=== PATIENT | female | born 1985 | race Caucasian/White ===

== ENCOUNTER 2016-12-31 08:19 | Emergency (ER) | payer OTHER, MEDICAID ==
[~2016-12-31 08:19] MED LIST: CALNTAB PO; LACTCAP8 PO; SERT-132 PO
--- NOTE | 2016-12-31 09:10 | PD ---
HPI Chief Complaint cramping/pressure Date Seen: Dec 31, 2016 Time Seen: 08:50 Travel History International Travel<30 Days: No Contact w/Intl Traveler<30Days: No Known Affected Area: No History of Present Illness HPI 31-year-old 4 para 1111 at 26 weeks gestation who was on her way to work this morning and felt pelvic pressure and mild menstrual cramps sensation and was concerned. She admits she is quite anxious due to a prior history of a 22 week demise. She denies any vaginal discharge, bleeding, contractions or leakage of fluid. No dysuria hematuria or frequency. History Past Medical History Medical History: Denies Significant Hx Family History Family History: Negative Social History Alcohol Use: No Tobacco Use: No Substance Abuse: No Allergies-Medications (Allergen,Severity, Reaction): Coded Allergies: erythromycin base (Unverified Allergy, Severe, Rash, 12/18/16) Sulfa (Sulfonamide Antibiotics) (Unverified Allergy, Mild, 12/18/16) bacitracin (Unverified Allergy, Mild, 12/18/16) gramicidin D (Unverified Allergy, Mild, 12/18/16) neomycin (Unverified Allergy, Mild, 12/18/16) polymyxin B (Unverified Allergy, Mild, 12/18/16) vancomycin (Unverified Allergy, Mild, 12/18/16) Home Meds Reported Medications Lactobacillus Acidophilus (Probiotic) 1 Cap Cap, 1 CAP PO DAILY for Nutritional Supplement, #0 CAP 0 Refills 03/19/16 Vitamin (Calna) 1 Tab Tab, 1 TAB PO DAILY 03/19/16 Sertraline (Sertraline) 50 Mg Tab, 50 MG PO DAILY, #0 TAB 0 Refills 03/19/16 Review of Systems Except as stated in HPI: all other systems reviewed are Neg Physical Exam Narrative GENERAL: Well-nourished, well-developed patient. SKIN: Warm and dry. HEAD: Normocephalic and atraumatic. EYES: No scleral icterus. No injection or drainage. ENT: No nasal drainage noted. Mucous membranes pink. Airway patent. NECK: Supple, trachea midline. No JVD. CARDIOVASCULAR: Regular rate and rhythm without murmurs, gallops, or rubs. RESPIRATORY: Breath sounds equal bilaterally. No accessory muscle use. BREASTS: Bilateral exam showed no masses , no retractions, no nipple discharge. ABDOMEN/GI: Abdomen soft, non-tender, bowel sounds present, no rebound, no guarding Gravid to [-] weeks size Fundal Height: [27-] GENITOURINARY: External Genitalia: intact and normal in appearance BUS glands: [Negative-] Cervix: [-] Dilatation: [Closed-] Effacement: [-Long] Station: [-High] Presentation: [-] Membranes: [intact] Uterine Contractions: [-None] FHT's: Category: [-] Baseline: [-] Reactive: [-Yes] Variability: [-] Decels: [-] EXTREMITIES: No cyanosis or edema. BACK: Nontender without obvious deformity. No CVA tenderness. NEUROLOGICAL: Awake and alert. Motor and sensory grossly within normal limits. Five out of 5 muscle strength in all muscle groups. Normal speech. Data Data Vital Signs Reviewed: Yes MDM Medical Record Reviewed: Yes Narrative Course / MDM Assessment: Multipara at 26 weeks gestation with lower abdominal pressure without evidence of labor. Plan: Urine dipstick negative for LC and nitrite. Precautions were reviewed with the patient and she was encouraged follow-up with Dr. Mccord as scheduled on . Diagnosis Diagnosis: Primary Impression: related bilateral lower abdominal pain, antepartum Additional Impression: 26 weeks gestation of Disposition: DISCHARGE HOME Condition: Good Devon Regalado MD Dec 31, 2016 09:10
== END 2016-12-31 09:33 | disposition home or self-care (01) ==
LOC: HOBED 08:19
DX: O26.892 Other specified pregnancy related conditions, second trimester (principal); R10.32 Left lower quadrant pain; R10.31 Right lower quadrant pain; Z3A.26 26 weeks gestation of pregnancy
CPT/HCPCS: 59025

== ENCOUNTER 2017-01-09 13:23 | Emergency (ER) | payer OTHER, MEDICAID ==
[~2017-01-09] VITALS: Ht 170.2 cm; Wt 60.3 kg
--- NOTE | 2017-01-09 14:21 | PD ---
HPI Chief Complaint Feels like to have another bladder infection , pressure Date Seen: Jan 09, 2017 Time Seen: 14:15 Travel History International Travel<30 Days: No Contact w/Intl Traveler<30Days: No Known Affected Area: No History of Present Illness HPI Patient is a 31-year-old white female G3 for P2 at [address] Mccord for care who presents complaining of having sensations like she is having another bladder infection she also noticed small flecks of blood in the urine today. The patient just finished a round of Macrobid this morning for UTI diagnosed to Dr. Mccord's office. She states they did a culture the urine and we don't know the results and it was done through her office. heart rate tracing is reactive and no contractions. She denies vaginal bleeding or leakage of fluid. Weeks Gestation: 28 Para: 1 : 4 History Obstetric History Obstetric History 2 vaginal deliveries 1 early AB Social History Alcohol Use: No Tobacco Use: No Substance Abuse: No Allergies-Medications (Allergen,Severity, Reaction): Coded Allergies: erythromycin base (Unverified Allergy, Severe, Rash, 12/18/16) Sulfa (Sulfonamide Antibiotics) (Unverified Allergy, Mild, 12/18/16) bacitracin (Unverified Allergy, Mild, 12/18/16) gramicidin D (Unverified Allergy, Mild, 12/18/16) neomycin (Unverified Allergy, Mild, 12/18/16) polymyxin B (Unverified Allergy, Mild, 12/18/16) vancomycin (Unverified Allergy, Mild, 12/18/16) Home Meds Reported Medications Lactobacillus Acidophilus (Probiotic) 1 Cap Cap, 1 CAP PO DAILY for Nutritional Supplement, #0 CAP 0 Refills 03/19/16 Vitamin (Calna) 1 Tab Tab, 1 TAB PO DAILY 03/19/16 Sertraline (Sertraline) 50 Mg Tab, 50 MG PO DAILY, #0 TAB 0 Refills 03/19/16 Review of Systems General / Constitutional: No: Fever, Weight Gain, Chills, Other Eyes: No: Diploplia, Blurred Vision, Visual changes, Pain, Photophobia HENT: No: Headaches, Vertigo, Lightheadedness Cardiovascular: No: Irregular Rhythm, Chest Pain or Discomfort, Palpitations, Tachycardia, Syncope, Varicosities, Edema, Cyanosis Respiratory: No: Cough, Short of Breath, Other Gastrointestinal: No: Nausea, Vomiting, Diarrhea Genitourinary: Urgency, Frequency, Hematuria, No: Decreased Urinary Output, Oliguria Musculoskeletal: No: Limited ROM, Weakness, Cramping, Edema, Pain Skin: No Rash, No Itching, No Dryness, No Lumps, No Change in Pigmentation, No Change in Nails, No Alopecia, No Lesions Neurologic: No: Weakness, Dizziness, Syncope, Focal Abnormalities, Coordination Problem, Headache, Slurred Speech, Seizures Psychiatric: No: Depression, Suicidal Ideations, Homicidal Ideation Endocrine: No: Heat Intolerance, Cold Intolerance, Polydipsia, Polyuria, Other Physical Exam Narrative GENERAL: Well-nourished, well-developed patient. SKIN: Warm and dry. HEAD: Normocephalic and atraumatic. EYES: No scleral icterus. No injection or drainage. ENT: No nasal drainage noted. Mucous membranes pink. Airway patent. NECK: Supple, trachea midline. No JVD. CARDIOVASCULAR: Regular rate and rhythm without murmurs, gallops, or rubs. RESPIRATORY: Breath sounds equal bilaterally. No accessory muscle use. BREASTS: Bilateral exam showed no masses , no retractions, no nipple discharge. ABDOMEN/GI: Abdomen soft, non-tender, bowel sounds present, no rebound, no guarding Gravid to [28-] weeks size Fundal Height: [-28] GENITOURINARY: External Genitalia: intact and normal in appearance BUS glands: [-] Cervix: [-Posterior] Dilatation: [-Closed] Effacement: [-] Thick Station: [-3] Membranes: [intact ] Uterine Contractions: [-none] FHT's: Category: [-1] Baseline: [-133] Reactive: [-yes] Variability: [mod-] Decels: [-none] EXTREMITIES: No cyanosis or edema. BACK: Nontender without obvious deformity. No CVA tenderness. NEUROLOGICAL: Awake and alert. Motor and sensory grossly within normal limits. Five out of 5 muscle strength in all muscle groups. Normal speech. Data Data Labs Urine dipstick here on OB ED is positive for blood otherwise negative Urinalysis from downstairs shows moderate blood otherwise negative MDM Interpretation(s) Patient is 31-year-old white female at [address] Mccord for care. She presents complaining of possible UTI have after having just finished a week of Macrobid, she is having frequency urgency pressure, no vaginal bleeding or leakage of fluid or abdominal pain. Heart rate tracing is reactive and no contractions seen. Urinalysis on the floor and in the main lab shows moderate blood but nothing else and a culture indicated. I explained the patient that she might have some microscopic hematuria just from - related the baby activity or pressing on the bladder type issues, I doubt its renal stone in that she's microscopic hematuria and she has no pain Plan Plan to discharge patient today have her increase her fluid intake at home probably flush the bladder out. Also increase her bed rest somewhat to just let somebody help her with her toddler's that she's not constantly lifting and straining. Diagnosis Diagnosis: Primary Impression: 28 weeks gestation of Additional Impression: Hematuria of undiagnosed cause Disposition: 01 DISCHARGE HOME Condition: Stable Yury Levine II, MD Jan 09, 2017 14:21
[2017-01-09 15:02] LABS: BLOOD, URINE MOD (NEG); COMMENT (UR) CULT NOT INDICATED; CULTURE IF INDICATED CULT NOT INDICATED; GLUCOSE,URINE NEG (NEG); KETONE, URINE NEG (NEG); NITRITE,URINE NEG (NEG); PH, URINE 6.5 (5.0-8.5); SQUAMOUS EPITHELIAL CELL URINE 2 /hpf (0-5); URINE COLOR YELLOW (YELLW/STRAW)
== END 2017-01-09 16:15 | disposition home or self-care (01) ==
LOC: HOBED 13:23
DX: O26.893 Other specified pregnancy related conditions, third trimester (principal); R31.9 Hematuria, unspecified; Z3A.28 28 weeks gestation of pregnancy; Z79.899 Other long term (current) drug therapy; Z88.2 Allergy status to sulfonamides; Z88.1 Allergy status to other antibiotic agents; Z88.8 Allergy status to other drugs, medicaments and biological substances
CPT/HCPCS: 81001; 99283

== ENCOUNTER 2017-03-20 05:14 | Inpatient (IN) | payer OTHER, MEDICAID ==
[2017-03-20] VITALS (43 sets, daily range): BP systolic 94–131; BP diastolic 51–92; PULSE 63–100; RESP 18–20; TEMP 97.2–98.7
[~2017-03-20] VITALS: Ht 170.2 cm; Wt 65.0 kg
[2017-03-20] MEDS ORDERED: ONDANSETRON HCL 4 MG/2 ML VIAL IV PUSH PRN (06:15)
[2017-03-20] MEDS ORDERED: LACTATED RINGER'S 1000 ML IV SCH (06:15)
[2017-03-20] MEDS ORDERED: LIDOCAINE HCL 1% 50 ML VIAL I-DERMAL PRN (06:15)
[2017-03-20] MEDS ORDERED: NS 500 ML BOLUS IV PRN (06:15)
[2017-03-20] MEDS ORDERED: LACTATED RINGER'S 1000 ML BOLUS IV PRN (06:15)
[2017-03-20] MEDS ORDERED: MINERAL OIL 10 ML VIAL TOPICAL PRN (06:15)
[2017-03-20] MEDS ORDERED: OXYTOCIN 30 UNITS/NS 500ML PREMIX IV SCH (06:15)
[2017-03-20] MEDS ORDERED: OXYTOCIN 30 UNITS 500ML PREMIX IV ONE (06:15)
[2017-03-20] MEDS ORDERED: CITRIC ACID-SODIUM CITRATE LIQ 30 ML UDC PO SCH (06:15)
[2017-03-20] MEDS ORDERED: LIDOCAINE HCL 1% 50 ML VIAL INFIL PRN (06:15)
[2017-03-20] MEDS ORDERED: NS 1000 ML IV PRN (06:15)
[2017-03-20 06:44] LABS: AUTOMATED NEUTROPHIL # 4.4 TH/MM3 (1.8-7.7); BASOPHIL % 0.3 % (0.0-2.0); EOSINOPHIL # 0.1 TH/MM3 (0-0.4); EOSINOPHIL % 0.7 % (0.0-4.0); HEMATOCRIT 32.2 % (35.0-46.0); LYMPH % 27.1 % (9.0-44.0); MEAN CELL VOLUME 70.7 FL (80.0-100.0); MEAN CORPUSCULAR HEMOGLOBIN 22.4 PG (27.0-34.0); MEAN CORPUSCULAR HGB CONC 31.7 % (32.0-36.0); MONO % 10.4 % (0.0-8.0); NEUT % 61.5 % (16.0-70.0); PLATELET COUNT 86 TH/MM3 (150-450); RED BLOOD COUNT 4.56 MIL/MM3 (4.00-5.30); RED CELL DISTRIBUTION WIDTH 19.2 % (11.6-17.2); WHITE BLOOD COUNT 7.2 TH/MM3 (4.0-11.0)
[2017-03-20 06:54] LABS: BACTERIA, URINE FEW /hpf; BLOOD, URINE NEG (NEG); COMMENT (UR) CULTURE INDICATED; CULTURE IF INDICATED CULTURE INDICATED; GLUCOSE,URINE NEG (NEG); HEMO FLAGS AUTO DIFF; KETONE, URINE NEG (NEG); MUCUS URINE FEW /lpf (OCC); NITRITE,URINE NEG (NEG); SQUAMOUS EPITHELIAL CELL URINE 6 /hpf (0-5); URINE COLOR YELLOW (YELLW/STRAW)
[2017-03-20 07:53] LABS: PLATELET ESTIMATE SMEAR LOW (NORMAL); PLATELET MORPHOLOGY ENLARGED (NORMAL); SCAN/DIFF AUTO DIFF CONFIRMED
[2017-03-20 07:54] LABS: OVALOCYTES 1+ (NORMAL)
[2017-03-20] MEDS: oxyCODONE/ACETAMINOPHEN 5 MG/325 MG TAB PO PRN ×2 (16:26→20:57)
[2017-03-20] MEDS: IBUPROFEN 600 MG TAB PO PRN (16:26)
[2017-03-20] MEDS ORDERED: ZOLPIDEM TARTRATE 5 MG TAB PO PRN (16:30)
[2017-03-20] MEDS ORDERED: WITCH HAZEL 50%/GLYCERIN 12.5% 40 PAD JAR TOPICAL PRN (16:30)
[2017-03-20] MEDS ORDERED: DOCUSATE SODIUM 50 MG/SENNA 8.6 MG TAB PO PRN (16:30)
[2017-03-20] MEDS ORDERED: BENZOCAINE 20% TOPICAL SPRAY 60 ML CAN TOPICAL PRN (16:30)
[2017-03-20] MEDS ORDERED: OXYTOCIN 30 UNITS-500ML PREMIX 500 ML IV SCH (16:30)
[2017-03-20] MEDS ORDERED: ALUMINUM/MAGNESIUM/SIMETH 30 ML CUP PO PRN (16:30)
[2017-03-20] MEDS ORDERED: ONDANSETRON ODT 4 MG TAB PO PRN (16:30)
[2017-03-20] MEDS ORDERED: ACETAMINOPHEN 325 MG TAB PO PRN (16:30)
[2017-03-21] MEDS: IBUPROFEN 600 MG TAB PO PRN ×3 (00:27→15:09)
[2017-03-21] MEDS: oxyCODONE/ACETAMINOPHEN 5 MG/325 MG TAB PO PRN (00:27)
[2017-03-21] MEDS: oxyCODONE/ACETAMINOPHEN 5 MG/325 MG 2 TABS PO PRN ×4 (04:30→19:49)
[2017-03-21 06:30] LABS: AUTOMATED NEUTROPHIL # 5.2 TH/MM3 (1.8-7.7); BASOPHIL % 0.2 % (0.0-2.0); EOSINOPHIL # 0.1 TH/MM3 (0-0.4); EOSINOPHIL % 0.8 % (0.0-4.0); HEMATOCRIT 25.2 % (35.0-46.0); HEMO FLAGS DIFF FINAL; LYMPH % 28.5 % (9.0-44.0); LYMPHOCYTE # 2.4 TH/MM3 (1.0-4.8); MEAN CELL VOLUME 70.8 FL (80.0-100.0); MEAN CORPUSCULAR HEMOGLOBIN 23.6 PG (27.0-34.0); MEAN CORPUSCULAR HGB CONC 33.4 % (32.0-36.0); MONO % 8.8 % (0.0-8.0); NEUT % 61.7 % (16.0-70.0); PLATELET COUNT 102 TH/MM3 (150-450); RED BLOOD COUNT 3.57 MIL/MM3 (4.00-5.30); WHITE BLOOD COUNT 8.4 TH/MM3 (4.0-11.0)
[2017-03-21 08:00] VITALS: BP 108/69; PULSE 83; RESP 18; TEMP 97.4; O2SAT 100
[2017-03-21] MEDS ORDERED: INFLUENZA VIRUS VACCINE (QUADRIVALENT) 0.5 ML SYR IM ONE (10:00)
--- NOTE | 2017-03-21 13:12 | PD.OB.DELI ---
Weeks gestation: 38 Gest age assessed date: Mar 20, 2017 Gest age assessed time: 05:00 Pt started active labor?: No Medical induction of labor?: Yes Medical induction start date: Mar 20, 2017 Medical induction start time: 08:00 Artificial rupture of membrane: Yes Artificial ROM date: Mar 20, 2017 Artifical ROM time: 08:00 Anesthesia: Lidocaine local to perineum Episiotomy: None Vaginal Delivery: Normal Presentation: Occiput anterior Nuchal Cord: None Delayed cord clamping (45 sec): Yes Infant: Female Delivery date: Mar 20, 2017 Delivery time: 14:27 One Minute : 8 Five Minute : 8 Weight: 6-6 Placenta: Spontaneous delivery Laceration: Vaginal laceration, 2 deg Repair: Chromic interrupted, Chromic running Estimated blood loss: 300 Crystal Hardwick MD Mar 21, 2017 13:12
--- NOTE | 2017-03-21 13:13 | HHI.OB ---
Subjective Post Day: 1 Remarks Pt doing well, pain controlled,minimal bleeding Objective Vitals/I&O Vital Signs Date Time Temp Pulse Resp B/P (MAP) Pulse Ox O2 Delivery O2 Flow Rate FiO2 03/20/17 21:00 98.5 75 20 113/57 (75) 03/20/17 17:15 97.9 100 18 94/71 (79) 03/20/17 16:09 97.8 18 03/20/17 16:00 83 107/73 (84) 03/20/17 15:45 97.2 03/20/17 15:45 76 111/70 (84) 03/20/17 15:42 18 03/20/17 15:30 95 111/68 (82) 03/20/17 15:28 79 101/66 (78) 03/20/17 15:27 18 03/20/17 14:08 18 03/20/17 14:00 77 122/78 (93) 03/20/17 14:00 88 03/20/17 13:41 78 108/92 (97) 03/20/17 13:40 73 03/20/17 13:35 85 03/20/17 13:15 18 Objective Remarks GENERAL: Well-nourished, well-developed patient. CARDIOVASCULAR: Regular rate and rhythm without murmurs, gallops, or rubs. RESPIRATORY: Breath sounds equal bilaterally. No accessory muscle use. ABDOMEN/GI: Abdomen soft, non-tender. Fundus: Firm, non-tender at umbilicus. GENITOURINARY: Light to moderate bleeding. EXTREMITIES: No cyanosis or edema, non-tender, without signs of DVT. Medications and IVs Current Medications Medications (Trade) Dose Ordered Sig/Luz Route Start Time Stop Time Status Last Admin (Tylenol) 650 mg Q4H PRN PO 03/20/17 16:30 (Motrin) 600 mg Q6H PRN PO 03/20/17 16:30 03/21/17 09:01 (Percocet 5-325 Mg) 1 tab Q4H PRN PO 03/20/17 16:30 03/21/17 00:27 (Percocet 5-325 Mg) 2 tab Q4H PRN PO 03/20/17 16:30 03/21/17 09:01 (Americaine 20% Top Spr) 1 spray Q4H PRN TOPICAL 03/20/17 16:30 03/20/17 17:45 (Tucks Pads) 1 applic Q6H PRN TOPICAL 03/20/17 16:30 03/20/17 17:45 (Michelle-Colace) 2 tab Q12H PRN PO 03/20/17 16:30 03/20/17 20:57 (Ambien) 5 mg HS PRN PO 03/20/17 16:30 (M-M-R Ii Inj) 0.5 ml ONCE ONCE SQ 03/21/17 16:00 03/21/17 16:01 (Boostrix Inj) 0.5 ml ONCE ONCE IM 03/21/17 16:00 03/21/17 16:01 (Mag-Al Plus Susp Liq) 15 ml Q8H PRN PO 03/20/17 16:30 (Zofran Odt) 4 mg Q6H PRN PO 03/20/17 16:30 Assessment/Plan Assessment and Plan PPD # 1 s/p doing well Discharge Planning routine care, plan for discharge in Crystal Mantilla MD Mar 21, 2017 13:13
[2017-03-21] MEDS ORDERED: MEASLES, MUMPS, RUBELLA VACCINE 0.5 ML VIAL SQ ONE (16:00)
[2017-03-21] MEDS ORDERED: DIPHTH/TETANUS/ACEL PERTUSSIS (BOOSTER) 0.5 ML VIAL/PFS IM ONE (16:00)
[2017-03-21 20:00] VITALS: BP 111/68; PULSE 89; RESP 18; TEMP 97.9
[2017-03-22] MEDS: oxyCODONE/ACETAMINOPHEN 5 MG/325 MG 2 TABS PO PRN (02:58)
[2017-03-22] MEDS: IBUPROFEN 600 MG TAB PO PRN ×2 (02:58→08:15)
[2017-03-22 08:15] VITALS: BP 104/62; PULSE 74; RESP 20; TEMP 98.7; O2SAT 100
[2017-03-22] MEDS: oxyCODONE/ACETAMINOPHEN 5 MG/325 MG TAB PO PRN ×2 (08:15→12:35)
--- NOTE | 2017-03-22 08:57 | HHI.OB ---
Subjective Post Day: 1 Remarks doing well dc home Objective Vitals/I&O Vital Signs Date Time Temp Pulse Resp B/P (MAP) Pulse Ox O2 Delivery O2 Flow Rate FiO2 03/21/17 20:00 89 18 111/68 (82) 03/21/17 20:00 97.9 Objective Remarks GENERAL: Well-nourished, well-developed patient. ABDOMEN/GI: Abdomen soft, non-tender. Fundus: Firm, non-tender at umbilicus. GENITOURINARY: Light to moderate bleeding. EXTREMITIES: No cyanosis or edema, non-tender, without signs of DVT. Medications and IVs Current Medications Medications (Trade) Dose Ordered Sig/Luz Route Start Time Stop Time Status Last Admin (Tylenol) 650 mg Q4H PRN PO 03/20/17 16:30 (Motrin) 600 mg Q6H PRN PO 03/20/17 16:30 03/22/17 08:15 (Percocet 5-325 Mg) 1 tab Q4H PRN PO 03/20/17 16:30 03/22/17 08:15 (Percocet 5-325 Mg) 2 tab Q4H PRN PO 03/20/17 16:30 03/22/17 02:58 (Americaine 20% Top Spr) 1 spray Q4H PRN TOPICAL 03/20/17 16:30 03/20/17 17:45 (Tucks Pads) 1 applic Q6H PRN TOPICAL 03/20/17 16:30 03/20/17 17:45 (Michelle-Colace) 2 tab Q12H PRN PO 03/20/17 16:30 03/20/17 20:57 (Ambien) 5 mg HS PRN PO 03/20/17 16:30 (Mag-Al Plus Susp Liq) 15 ml Q8H PRN PO 03/20/17 16:30 (Zofran Odt) 4 mg Q6H PRN PO 03/20/17 16:30 Assessment/Plan Assessment and Plan PPD # 1 s/p doing well Discharge Planning routine care, plan for discharge today Barry Simons MD Mar 22, 2017 08:57
[2017-03-22] MEDS ORDERED: OXYC1TAB63 PO (08:59)
--- NOTE | 2017-03-22 09:00 | HHI.DCPOC ---
Discharge Care Plan Diagnosis: (1) (spontaneous vaginal delivery) Report Symptoms to Your Doctor -Temperature above 100.5 degrees -Redness, of incision or excessive or foul smelling drainage -Unusual pain or calf pain -Increased vaginal bleeding -Painful or difficulty urinating -Feelings of extreme sadness or anxiety after 2 weeks Goals to Promote Your Health * To prevent worsening of your condition and complications * To maintain your health at the optimal level Directions to Meet Your Goals Take your medications as prescribed Follow your dietary instruction Follow activity as directed Ensure plenty of rest for recovery Drink fluids for hydration Keep your appointments as scheduled Take your immunizations and boosters as scheduled If your symptoms worsen call your PCP, if no PCP go to Urgent Care Center or Emergency Room Smoking is Dangerous to Your Health. Avoid second hand smoke Call the 24-hour crisis hotline for domestic abuse at Barry Simons MD Mar 22, 2017 09:00
--- NOTE | 2017-03-22 09:02 | HHI.DS ---
Admission Date Mar 20, 2017 at 05:14 Discharge Date: Mar 22, 2017 Admitting Diagnosis Diagnosis: (1) Thrombocytopenia affecting , antepartum ICD Codes: D69.6 - Thrombocytopenia, unspecified; O99.119 - Thrombocytopenia affecting , antepartum Status: Acute Delivery Date: Mar 20, 2017 Vaginal Delivery: Normal, Spontaneous : Female Brief History Patient came with thrombocytopenia Hospital Course and DC home ppd #2 Pt Condition on Discharge: Good Discharge Disposition: Discharge Home Discharge Instructions Diet Instructions: As Tolerated, No Restrictions Activities You Can Perform: Pelvic Rest Activities to Avoid: Driving for 24 hrs Follow up Referrals: [facility] - 2 Weeks @ [facility] with Crystal Hardwick MD New Medications: Oxycodone HCl/Acetaminophen (Oxycodone-Acetaminophen 5-325) 5 Mg-325 Mg Tablet 2 TAB PO Q4H PRN for PAIN SCALE 6 TO 10, #20 TAB Continued Medications: Lactobacillus Acidophilus (Probiotic) 1 Cap Cap 1 CAP PO DAILY for Nutritional Supplement, #0 CAP 0 Refills Vitamin (Calna) 1 Tab Tab 1 TAB PO DAILY Sertraline (Sertraline) 50 Mg Tab 50 MG PO DAILY, #0 TAB 0 Refills Barry Simons MD Mar 22, 2017 09:02
== END 2017-03-22 13:41 | disposition home or self-care (01) | DRG 775 ==
LOC: H2EB 05:14 → H1EA 16:48
PROVIDERS: ADMIT Obstetrics & Gynecology; ATTEND Obstetrics & Gynecology
PROC: 3E0P3VZ Introduction of Hormone into Female Reproductive, Percutaneous Approach (ICD-10-PCS; 2017-03-20)
PROC: 10907ZC Drainage of Amniotic Fluid, Therapeutic from Products of Conception, Via Natural or Artificial Opening (ICD-10-PCS; 2017-03-20)
PROC: 10E0XZZ Delivery of Products of Conception, External Approach (ICD-10-PCS; principal; 2017-03-21)
PROC: 0KQM0ZZ Repair Perineum Muscle, Open Approach (ICD-10-PCS; 2017-03-21)
DX: O99.12 Other diseases of the blood and blood-forming organs and certain disorders involving the immune mechanism complicating childbirth (principal); D69.6 Thrombocytopenia, unspecified; O71.4 Obstetric high vaginal laceration alone; Z37.0 Single live birth; Z3A.39 39 weeks gestation of pregnancy
CPT/HCPCS: 59025; 80307; 81001; 85025; 86850; 86900; 86901; 87086; J2405; J2590; J3010; J7120